=== PATIENT | female | born 1950 | race Caucasian/White ===

== ENCOUNTER → 2022-08-06 | Outpatient (CLI) | payer MEDICARE | LOC: COL.VAS 12:30 | DX: R06.02 Shortness of breath (principal) ==

== ENCOUNTER → 2022-08-23 | Outpatient (CLI) | payer MEDICARE | LOC: COL.RAD 10:33 | DX: R06.02 Shortness of breath (principal) ==

== ENCOUNTER → 2022-09-17 | Outpatient (CLI) | payer MEDICARE | LOC: COL.PUL 10:58 | DX: R06.02 Shortness of breath (principal) ==

== ENCOUNTER → 2023-07-29 | Outpatient (CLI) | payer MEDICARE | LOC: COL.VAS 08:46 | DX: I34.81 Nonrheumatic mitral (valve) annulus calcification (principal); I27.20 Pulmonary hypertension, unspecified ==

== ENCOUNTER 2024-05-24 17:23 | Emergency (ER) | payer MEDICARE ==
[~2024-05-24] VITALS: Ht 162.6 cm; Wt 156.4 kg
[2024-05-24 17:24] VITALS: TEMP 97.4
[2024-05-24] MEDS ORDERED: LR 1,000 ML IV ONE (17:45)
[2024-05-24 18:08] LABS: PROTHROMBIN TIME 10.4 SECONDS (9.7-12.8)
[2024-05-24 18:11] LABS: BASO % 0.1 % (0.0-2.0); EOS % 0.3 % (0.0-4.0); GRAN # 4.6 K/mm3 (1.4-6.5); GRAN % 47.4 % (42.2-75.2); HEMOGLOBIN 11.7 g/dl (12.5-16.0); LYMPH # 3.7 K/mm3 (1.2-3.4); MEAN CELL VOLUME 93 fl (80.0-100.0); MEAN CORPUSCULAR HEMOGLOBIN 30 pg (27-31); MEAN CORPUSCULAR HGB CONC 33 g/dl (33.0-37.0); MEAN PLATELET VOLUME 9.7 fl (7.4-10.4); MONO # 1.1 K/mm3 (0.1-0.6); PLATELET COUNT 304 K/mm3 (130-400); RED BLOOD COUNT 3.85 M/mm3 (4.10-5.30); REDCELL DISTRIBUTION WIDTH-CV 14.6 % (11.5-14.5)
[2024-05-24 18:14] LABS: HEMATOCRIT 35.7 % (37.0-47.0)
[2024-05-24 18:22] LABS: ALBUMIN 3.2 g/dL (3.4-4.8); CALCIUM 8.9 mg/dL (8.4-10.2); CREATININE, serum 1.26 mg/dL (0.57-1.11); MAGNESIUM 2.3 mg/dL (1.6-2.6); TOTAL PROTEIN 6.1 g/dl (6.2-8.1)
[2024-05-24 21:48] LABS: URINE APPEARANCE CLOUDY (CLEAR/HAZY); URINE BLOOD NEGATIVE (NEGATIVE); URINE COLOR YELLOW (YELLOW); URINE GLUCOSE NEGATIVE (NEGATIVE); URINE KETONE TRACE (NEGATIVE); URINE NITRATE NEGATIVE (NEGATIVE); URINE PROTEIN(semi-quant) NEGATIVE (NEGATIVE)
[2024-05-24] MEDS ORDERED: CEPHALEXIN500 M1 PO (22:05)
[2024-05-24 22:19] LABS: COLLECTION METHOD CLEAN CATCH
[2024-05-24 22:20] LABS: MUCOUS PRESENT (NOT PRESENT); URINE BACTERIA OCCASIONAL /hpf (NONE SEEN)
[2024-05-24 22:21] LABS: BUDDING YEAST PRESENT (NOT PRESENT)
[2024-05-24 22:51] VITALS: BP 115/69; PULSE 67
== END 2024-05-24 23:12 | disposition home or self-care (01) ==
LOC: COL.ER 17:23
PROVIDERS: Emergency Medicine
DX: E86.0 Dehydration (principal); N39.0 Urinary tract infection, site not specified
CPT/HCPCS: J7120